=== PATIENT | female | born 1965 | race Caucasian/White ===

== ENCOUNTER 2017-08-16 13:34 | Emergency (ER) | payer OTHER ==
[~2017-08-16] VITALS: Ht 154.9 cm; Wt 76.2 kg
[2017-08-16 14:08] VITALS: Ht 154.9 cm; Wt 76.2 kg
[2017-08-16 17:58] LABS: PLATELET COUNT 269 x10^3mcL (130-400); RED CELL DISTRIBUTION WIDTH 13.3 % (11.5-14.5)
[2017-08-16 18:13] LABS: CALCIUM 9.1 mg/dL (8.5-10.1); CHLORIDE SERUM 105 mmol/L (98-107); CREATININE SERUM 0.7 mg/dL (0.6-1.0); GFR1 > 60 mL/min; GLUCOSE SERUM 119 mg/dL (74-106); SODIUM SERUM 140 mmol/L (136-145)
[2017-08-16 18:19] LABS: ALBUMIN 3.7 g/dL (3.4-5.0); ALKALINE PHOSPHATASE 90 U/L (46-116); ALT/SGPT 60 U/L (14-59); AMYLASE 43 U/L (25-115); AST/SGOT 27 U/L (15-37); BILIRUBIN TOTAL 0.42 mg/dL (0.20-1.00); LIPASE 145 IU/L (73-393); TOTAL PROTEIN, SERUM 7.5 g/dL (6.4-8.2)
[2017-08-16 19:59] LABS: UA SPECIFIC GRAVITY >=1.030 (1.005-1.035); microscopic required? YES; urine erythrocyte TRACE (NEGATIVE)
[2017-08-16 21:13] VITALS: BP 116/64
== END 2017-08-16 21:13 | disposition home or self-care (01) ==
LOC: ED 13:34
PROVIDERS: Emergency Medicine
DX: R10.12 Left upper quadrant pain (principal); R11.2 Nausea with vomiting, unspecified
CPT/HCPCS: 83880; J2270; J2405; J3490; Q9967

== ENCOUNTER 2017-11-30 09:36 | Inpatient (IN) | payer OTHER ==
[~2017-11-30] VITALS: Ht 154.9 cm; Wt 77.6 kg
[2017-11-30 09:48] VITALS: Ht 154.9 cm; Wt 77.6 kg
[2017-11-30 10:33] LABS: BASOPHIL % 0.3 % (0-2); PLATELET COUNT 273 x10^3mcL (130-400); RED CELL DISTRIBUTION WIDTH 13.3 % (11.5-14.5)
[2017-11-30 10:35] LABS: CALCIUM 8.7 mg/dL (8.5-10.1); CARBON DIOXIDE 24.5 mmol/L (21-32); CHLORIDE SERUM 102 mmol/L (98-107); CREATININE SERUM 0.6 mg/dL (0.6-1.0); GFR1 > 60 mL/min; GLUCOSE SERUM 148 mg/dL (74-106); POTASSIUM SERUM 4.1 mmol/L (3.5-5.1); SODIUM SERUM 136 mmol/L (136-145)
[2017-11-30 10:41] LABS: ALBUMIN 3.6 g/dL (3.4-5.0); ALKALINE PHOSPHATASE 92 U/L (46-116); ALT/SGPT 55 U/L (14-59); AST/SGOT 41 U/L (15-37); BILIRUBIN TOTAL 0.6 mg/dL (0.20-1.00); CHOLESTEROL 191 mg/dL (<200); TOTAL PROTEIN, SERUM 7.7 g/dL (6.4-8.2)
[2017-11-30 15:07] VITALS: BP 157/91
[2017-11-30 16:48] VITALS: BP 118/70
[2017-11-30 20:15] VITALS: BP 135/76
[2017-11-30 23:38] LABS: microscopic required? NO
[2017-11-30 23:56] LABS: urine erythrocyte NEGATIVE (NEGATIVE)
[2017-12-01] VITALS (9 sets, daily range): BP systolic 96–126; BP diastolic 51–69
[2017-12-01 06:18] LABS: BASOPHIL % 0.4 % (0-2); PLATELET COUNT 259 x10^3mcL (130-400); RED CELL DISTRIBUTION WIDTH 13.7 % (11.5-14.5)
[2017-12-01 06:21] LABS: ALKALINE PHOSPHATASE 85 U/L (46-116); ALT/SGPT 57 U/L (14-59); AST/SGOT 34 U/L (15-37); BILIRUBIN TOTAL 0.5 mg/dL (0.20-1.00); CALCIUM 8.6 mg/dL (8.5-10.1); CARBON DIOXIDE 28.5 mmol/L (21-32); CHLORIDE SERUM 104 mmol/L (98-107); CREATININE SERUM 0.7 mg/dL (0.6-1.0); GFR1 > 60 mL/min; GLUCOSE SERUM 121 mg/dL (74-106); MAGNESIUM 2.2 mg/dL (1.8-2.4); POTASSIUM SERUM 4.2 mmol/L (3.5-5.1); SODIUM SERUM 138 mmol/L (136-145); TOTAL PROTEIN, SERUM 6.9 g/dL (6.4-8.2)
[2017-12-01 06:46] LABS: ALBUMIN 3.2 g/dL (3.4-5.0)
[2017-12-02 05:29] VITALS: BP 107/63
[2017-12-02 06:24] LABS: CALCIUM 8.6 mg/dL (8.5-10.1); CARBON DIOXIDE 28.3 mmol/L (21-32); CHLORIDE SERUM 105 mmol/L (98-107); CREATININE SERUM 0.7 mg/dL (0.6-1.0); GFR1 > 60 mL/min; GLUCOSE SERUM 125 mg/dL (74-106); MAGNESIUM 2.1 mg/dL (1.8-2.4); POTASSIUM SERUM 4.2 mmol/L (3.5-5.1); SODIUM SERUM 138 mmol/L (136-145)
[2017-12-02 06:28] LABS: BASOPHIL % 0.3 % (0-2); PLATELET COUNT 236 x10^3mcL (130-400); RED CELL DISTRIBUTION WIDTH 13.4 % (11.5-14.5)
[2017-12-02 09:15] VITALS: BP 123/77
[2017-12-02 12:54] VITALS: BP 121/69
[2017-12-02] MEDS ORDERED: ACETAMINOPHEN-H1 TA1 PO (14:47)
[2017-12-02 14:49] VITALS: BP 121/69
== END 2017-12-02 16:33 | disposition home or self-care (01) | DRG 254 ==
LOC: ED 09:36 → DU 13:25
PROVIDERS: Internal Medicine Pulmonary Disease; Specialist
DX: K58.9 Irritable bowel syndrome, unspecified (principal); G54.0 Brachial plexus disorders; E86.9 Volume depletion, unspecified; R20.0 Anesthesia of skin; Z90.710 Acquired absence of both cervix and uterus
CPT/HCPCS: 82962; 87046; 87046-59; G0480; J1885; J2270; J2405; J7030; Q0092; Q9966; Q9967

== ENCOUNTER 2018-06-26 13:13 | Emergency (ER) | payer OTHER ==
[~2018-06-26] VITALS: Ht 154.9 cm; Wt 75.7 kg
[~2018-06-26 13:13] MED LIST: ACETAMINOPHEN-H1 TA1 PO
[2018-06-26 13:27] VITALS: Ht 154.9 cm; Wt 75.7 kg
[2018-06-26 15:17] LABS: CALCIUM 9.1 mg/dL (8.5-10.1); CARBON DIOXIDE 27.8 mmol/L (21-32); CHLORIDE SERUM 104 mmol/L (98-107); CREATININE SERUM 0.7 mg/dL (0.6-1.0); GFR1 > 60 mL/min; GLUCOSE SERUM 115 mg/dL (74-106); SODIUM SERUM 141 mmol/L (136-145)
[2018-06-26 15:26] LABS: POTASSIUM SERUM 3.8 mmol/L (3.5-5.1)
[2018-06-26 15:27] LABS: BASOPHIL % 0.5 % (0-2); PLATELET COUNT 288 x10^3mcL (130-400); RED CELL DISTRIBUTION WIDTH 13.3 % (11.5-14.5)
[2018-06-26 17:14] VITALS: BP 120/78
== END 2018-06-26 17:14 | disposition home or self-care (01) ==
LOC: ED 13:13
PROVIDERS: Emergency Medicine
DX: N83.201 Unspecified ovarian cyst, right side (principal); Z88.5 Allergy status to narcotic agent
CPT/HCPCS: 36415

== ENCOUNTER 2018-07-22 10:44 | Emergency (ER) | payer OTHER ==
[~2018-07-22] VITALS: Ht 157.5 cm; Wt 75.3 kg
[2018-07-22 10:55] VITALS: Ht 157.5 cm; Wt 75.3 kg
[2018-07-22 14:42] VITALS: BP 126/85
== END 2018-07-22 14:42 | disposition home or self-care (01) ==
LOC: ED 10:44
DX: S61.211A Laceration without foreign body of left index finger without damage to nail, initial encounter (principal); Z88.5 Allergy status to narcotic agent; W26.0XXA Contact with knife, initial encounter; Y93.89 Activity, other specified; Y92.090 Kitchen in other non-institutional residence as the place of occurrence of the external cause; Y99.8 Other external cause status
CPT/HCPCS: 90715; J2001

== ENCOUNTER 2018-07-24 11:20 | Emergency (ER) | payer OTHER ==
[~2018-07-24] VITALS: Ht 157.5 cm; Wt 75.4 kg
[2018-07-24 11:57] VITALS: Ht 157.5 cm; Wt 75.4 kg
[2018-07-24 12:22] VITALS: BP 140/82
== END 2018-07-24 12:22 | disposition home or self-care (01) ==
LOC: ED 11:20
DX: S61.211D Laceration without foreign body of left index finger without damage to nail, subsequent encounter (principal); Z88.5 Allergy status to narcotic agent; W45.8XXD Other foreign body or object entering through skin, subsequent encounter

== ENCOUNTER 2018-08-08 12:19 | Emergency (ER) | payer OTHER ==
[~2018-08-08] VITALS: Ht 157.5 cm; Wt 75.7 kg
[2018-08-08 12:23] VITALS: BP 127/75; Ht 157.5 cm; Wt 75.7 kg
== END 2018-08-08 14:35 | disposition home or self-care (01) ==
LOC: ED 12:19
DX: S61.211D Laceration without foreign body of left index finger without damage to nail, subsequent encounter (principal); X58.XXXD Exposure to other specified factors, subsequent encounter; Z88.6 Allergy status to analgesic agent

== ENCOUNTER 2019-03-31 20:49 | Inpatient (IN) | payer OTHER ==
[~2019-03-31] VITALS: Ht 157.5 cm; Wt 74.4 kg
[2019-03-31 20:58] VITALS: Ht 157.5 cm; Wt 74.4 kg
--- NOTE | 2019-03-31 21:03 | NUR ---
PT BROUGHT TO ED BY [facility] WITH C/O CHEST PAIN X3 WKS. PT STATES THAT SHE SAW HER PCP ON WEDNESDAY AND HE TOLD HER TO CALL 911 IF SHE EXPERIENCED THE PAIN AGAIN. PT REPORTS THAT SHE EXPERIENCED THE PAIN THIS EVENING AND RATED PAIN AT 9/10. PT REPORTS L SIDED STERNAL PAIN THAT RADIATES TO L SHOULDER. PT REPORTS DIZZINESS AND NAUSEA ASSOCIATED WITH THE PAIN. PT
--- NOTE | 2019-03-31 22:12 | NUR ---
PT AMBULATED TO RESTROOM WITH STEADY GAIT TO PROVIDE URINE SPECIMEN.
[2019-03-31 22:36] LABS: microscopic required? NO
[2019-03-31 22:57] LABS: BASOPHIL % 0.3 % (0-2); PLATELET COUNT 258 x10^3mcL (130-400); RED CELL DISTRIBUTION WIDTH 13.2 % (11.5-14.5); urine erythrocyte NEGATIVE (NEGATIVE)
[2019-03-31 23:05] LABS: CALCIUM 9.4 mg/dL (8.5-10.1); CARBON DIOXIDE 28.6 mmol/L (21-32); CHLORIDE SERUM 103 mmol/L (98-107); CREATININE SERUM 0.8 mg/dL (0.6-1.0); GFR1 > 60 mL/min; GLUCOSE SERUM 106 mg/dL (74-106); POTASSIUM SERUM 3.8 mmol/L (3.5-5.1); SODIUM SERUM 139 mmol/L (136-145)
[2019-03-31 23:10] LABS: ALBUMIN 3.9 g/dL (3.4-5.0); ALKALINE PHOSPHATASE 99 U/L (46-116); ALT/SGPT 31 U/L (14-59); AST/SGOT 18 U/L (15-37); BILIRUBIN TOTAL 0.32 mg/dL (0.20-1.00)
--- NOTE | 2019-03-31 23:35 | NUR ---
PT RESTING IN A POSITION OF COMFORT, AOX4, RESP EVEN AND UNLABORED, NO ACUTE DSITRESS NOTED.
[2019-04-01] VITALS (10 sets, daily range): BP systolic 98–123; BP diastolic 53–68
--- NOTE | 2019-04-01 00:45 | NUR ---
PT CONTINUES TO REST IN A POSITION OF COMFORT, RESP EVEN AND UNLABORED, NO ACUTE DISTRESS NOTED.
--- NOTE | 2019-04-01 01:28 | NUR ---
PT REPORT CALLED TO [facility] TO ASSUME PT CARE.
--- NOTE | 2019-04-01 01:40 | NUR ---
PT TRANSFERRED TO [facility]A BY [facility] BY MYSELF AND [facility] EMT. PT ON FULL CM FOR TRANSPORT. PT AOX4, RESP EVEN AND UNLABORED, NO ACUTE DISTRESS NOTED. PT AMBULATED FROM [place] TO BED WITHOUT INCIDENT.
--- NOTE | 2019-04-01 01:42 | NUR ---
RECEIVED PT FROM ER VIA [facility], ACCOMPANIED BY NURSE. PT ABLE TO AMBULATE TO THE BED ON OWN STRENGTH. GAIT SLOW BUT STEADY. PT REPORTS MINIMAL DIZZINESS UPON AMBULATION. DENIES SOB. PT AOX4, (+) FRY, WILL MEDICATE PER ORDER. PT DENIES DIZZINESS RESTING IN BED, ONLY UPON AMBULATION. EDUCATED PT IN REGARDS TO USING CALL LIGHT FOR HELP PRIOR TO GETTING OUT OF BED TO ENSURE SAFETY. PT REPORTS ON WEDNESDAY (03/27) PT HAD CP AT THE BANK WHICH ESCALATED TO SOB, (+) FAINTING TO KNEES. EMS CALLED YET ONLY A REPORT FILED. PT STATES THE PAIN PERSISTED FOR 5 DAYS YET BECAME MORE SEVERE WHICH MADE HER COME TO HOSPITAL. PT ALSO ADDED THAT WHEN SHE WALKS UP + DOWN STAIRS, SHE FEELS HER HR GO UP AND HER BP INCREASES. PT ALSO STATES THAT WHEN SHE REACHES TO PICK SOMETHING OFF THE GROUND, SHE FEEL DIZZY AND FEELS CLOSE TO PASSING OUT. PT ONLY MEDICAL HX IS PRE DM AND INCREASE LIPIDS (SHE TAKES NO MEDS, ONLY MANAGED WITH DIET AND EXERCISE AT WORK). PT REPORTS CONSTIPATION FOR THREE DAYS PRIOR TO YESTERDAY (YESTERDAY SHE TOOK A LAXATIVE D/T NO BM X3 DAYS), LBM= 03/31 FORMED. OT HAS TRACE EDEMA BLE LLE>RLE. SKIN INTACT. ALL COMFORT AND SAFETY MEASURES PROVIDED FOR, ORIENTED PT TO ROOM AND CALL LIGHT. CALL LIGHT WITHIN REACH, BED IN LOWEST POSITION, WILL CONTINUE TO MONITOR.
--- NOTE | 2019-04-01 02:30 | NUR ---
MEDICATED PT WITH TYLENOL PO FOR FRY. PT ABLE TO SWALLOW MEDICATION EASILY, ALL COMFORT AND SAFETY MEASURES PROVIDED FOR, CALL LIGHT WITHIN REACH, BED IN LOWEST POSITION, WILL CONTINUE TO MONITOR.
--- NOTE | 2019-04-01 05:15 | NUR ---
PT RESTED IN INTERVALS DURING SHIFT, NO ACUTE CHANGES OCCURRING OVERNIGHT. PT DENIES CP/SOB DURING SHIFT, NO EKG CHANGES OCCURRING OVERNIGHT. PT IV SITE REMAINS PATENT, NO REDNESS, SWELLING OR PAIN NOTED. MEDICATED PT X1 WITH TYLENOL FOR FRY. PAIN MANAGED WELL. ALL COMFORT AND SAFETY MEASURES PROVIDED FOR, CALL LIGHT WITHIN REACH, BED IN LOWEST POSITION, WILL CONTINUE TO MONITOR.
--- NOTE | 2019-04-01 06:25 | NUR ---
DURING ADMISSION ASSESSMENT, PT STATED SHE HAS BEEN HAVING INCREASED DIZZINESS AND LIGHTHEADEDNESS WHEN RISING FROM BENDING DOWN TO GRAB SOMETHING. OBTAINED ORTHOSTATIC VITALS FOR ASSESSMENT. SUPINE: 113/60 (77), HR 57 SITTIN/63 (79), HR 62 STANDIN/61 (74), HR 78. PT REPORTED LITTLE DIZZINESS UPON STANDING. WHILE OBTAINING BP, PT HAD NOTED SWAYING WHEN TRYING TO STAND STILL. DENIES NAUSEA PT RETURNED BACK TO BED W/O DIFFICULTY. CALL LIGHT WITHIN REACH, BED IN LOWEST POSITION, WILL ENDORSE ALL CARE.
--- NOTE | 2019-04-01 07:10 | NUR ---
RECEIVED REPORT FROM [facility]. PATIENT SLEEPING COMFORTABLY IN BED WITH NO NEEDS IDENTIFIED. PT ON ROOM AIR. NO DISTRESS NOTED. BREATHING EVEN AND UNLABORED. SALINE LOCK NOTED TO LAC IS INTACT AND WITH A CLEAN DRESSING. TELE # [address] NO INDICATION OF CHEST PAIN. ALL QUESTIONS AND CONCERNS ADDRESSED.
--- NOTE | 2019-04-01 07:26 | NUR ---
ENDORSED ALL CARE TO DAYSHIFT NURSE, ALL COMFORT AND SAFETY MEASURES PROVIDED FOR, CALL LIGHT WITHIN REACH, BED IN LOWEST POSITION, ALL QUESTIONS AND CONCERNS ADDRESSED.
--- NOTE | 2019-04-01 08:16 | NUR ---
DR BIGGSR IN TO SEE AND ASSESS PATIENT. DISCUSSED CARDIOLOGY CONSULT WITH DR MONTOYA AND POSSIBLE DISCHARGE IF CLEARED. PT VERBALIZED UNDERSTANDING AND ALL QUESTIONS AND CONCERNS WERE ADDRESSED.
--- NOTE | 2019-04-01 08:39 | NUR ---
RETAIL OPERATIONS SPECIALIST IN TO SEE PATIENT.
--- NOTE | 2019-04-01 11:25 | NUR ---
PT REPORTS SOB, DIZZINESS, AND CHEST PAIN. IN TO SEE AND ASSESS PATIENT. O2 2L NC APPLIED. VITALS TAKEN AND STABLE (SEE DOCUMENTATION). O2 SATURATION ALSO TAKEN WITH AND W/O O2 APPLIED AND WERE FOLLOWS 99% ON 2L NC AND 97% ON ROOM AIR. AFTER A FEW MINUTES PT REPORTS THE FEELING HAS PASSED. ALL NEEDS MET. PT WAITING FOR CARDIOLOGY CONSULTATION.
--- NOTE | 2019-04-01 11:32 | NUR ---
ECHOCARDIOGRAM COMPLETED.
--- NOTE | 2019-04-01 13:55 | NUR ---
SPOKE WITH DR FLORES TO NOTIFY OF DR MONTOYA'S RECOMMENDATIONS. DR FLORES OK TO DISCHARGE PATIENT WITH FOLLOW UP IN ONE WEEK WITH PRIMARY CARE DOCTOR AND HOSPITAL CLEANER.
--- NOTE | 2019-04-01 17:11 | NUR ---
PATIENT STABLE FOR DISCHARGE PER MD. DISCHARGE INSTRUCTIONS AND SUMMARY DISCUSSED WITH PATIENT AND SON. PATIENT VERBALIZED UNDERSTANDING AND AGREES TO FOLLOW UP WITH PRIMARY CARE PHYSICAIAN AND A ELECTRIC SIGN WIRER. TELE MONITOR REMOVED AND MONITOR NOTIFIED. IV REMOVED AND IV POLE CLEARED. IDBAND S CUT. PATIENT ESCORTED TO LOBBY VIA WHEELCHAIR.
== END 2019-04-01 17:20 | disposition home or self-care (01) | DRG 204 ==
LOC: ED 20:49 → DU 04-01 00:30
PROVIDERS: Emergency Medicine; ADMIT Hospitalist
DX: I95.1 Orthostatic hypotension (principal); R07.89 Other chest pain; R73.03 Prediabetes
CPT/HCPCS: 82962; 99406; G0378; Q0092